=== PATIENT | female | born 1985 | race Two or more races ===

== ENCOUNTER 2024-07-10 19:27 | Inpatient (IN) | payer OTHER, SELFPAY ==
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
[2024-07-10 21:05] VITALS: BP 114/76; PULSE 119; RESP 18; TEMP 37.1; O2SAT 95
[2024-07-10 21:09] VITALS: PULSE 115
--- NOTE | 2024-07-10 21:09 | EKG_ITS ---
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
[2024-07-10] MEDS: SODIUM CHLORIDE 0.9% 1000 ML 1,000 ML 999 ML IV (21:27)
[2024-07-10 21:49] LABS: Basophils % (Auto) 1 % (0-2.5); Eosinophils % (Auto) 0 % (0-10); Hematocrit 43.1 % (36.0-46.0); Hemoglobin 14.5 g/dL (12.0-16.0); Immature Granulocytes % (Auto) 1 % (0-0); Immature Granulocytes Auto 0.04 Thou/mm3 (0.00-0.00); Lymphocytes # (Auto) 0.5 Thou/mm3 (1.0-4.8); Lymphocytes % (Auto) 6 % (10-50); Mean Corpuscular HGB Conc 33.6 g/dl (31.0-37.0); Mean Corpuscular Hemoglobin 29.5 pg (25.0-35.0); Mean Corpuscular Volume 88 fL (80-100); Monocytes # (Auto) 0.4 Thou/mm3 (0.0-0.8); Monocytes % (Auto) 5 % (0-12); Neutrophils # (Auto) 7.1 Thou/mm3 (1.8-7.7); Neutrophils % (Auto) 87 % (37-80); Nucleated Red Blood Cell % 0 /100 WBC (0); Platelet Count 435 Thou/mm3 (140-440); RDW Standard Deviation 41.8 fL (36.4-46.3); Red Blood Count 4.91 Miln/mm3 (4.00-5.20); White Blood Count 8.1 Thou/mm3 (3.6-11.0)
[2024-07-10 21:52] LABS: Lactate (Lactic Acid) 1.8 mMol/L (0.4-2.0)
[2024-07-10 22:08] LABS: INR 1.1 (0.9-1.3); Partial Thromboplastin Time 28.1 Seconds (22.0-36.0); Prothrombin Time 12.2 Seconds (9.0-12.2)
[2024-07-10 22:21] LABS: Alanine Aminotransferase 10 U/L (10-49); Albumin, Serum 4.5 gm/dL (3.5-5.0); Albumin/Globulin Ratio 1.6 (1.2-2.2); Alcohol, Blood Medical < 3.0 mg/dL (0-10.0); Alkaline Phosphatase 92 U/L (46-116); Anion Gap 9 (7-16); Aspartate Amino Transferase 16 U/L (0-34); BUN/Creatinine Ratio 31 Ratio (12-20); Bilirubin,Total 0.8 mg/dL (0.3-1.2); Blood Urea Nitrogen 25 mg/dL (9-23); Calcium 10.1 mg/dL (8.3-10.6); Calcium (Corrected) 10.1 mg/dL (8.5-10.1); Carbon Dioxide 27.6 mMol/L (20.0-31.0); Chloride 95 mMol/L (98-107); Creatinine (Component) 0.8 mg/dL (0.6-1.3); Globulin 2.9 gm/dL (2.3-3.5); Glucose 143 mg/dL (74-106); Lipase 22 U/L (12-53); Osmolality,Calculated 270 (275-295); Potassium 4.1 mMol/L (3.4-5.1); Sodium 132 mMol/L (136-145); Total Protein 7.4 gm/dL (5.7-8.2); Troponin I < 0.020 ng/mL (0.0-0.045); eGFR > 60 See Note
[2024-07-10 22:51] LABS: Collection Type, Urine Catheter
[2024-07-10 22:55] LABS: Bilirubin,Urine 1+ (Negative); Blood,Urine Negative (Negative); Clarity,Urine Clear (Clear/Hazy); Color,Urine Yellow (Lt Yel-Yel); Glucose, Urine Trace (Negative); Ketones,Urine 3+ (Negative); Leukocyte Esterase,Urine Negative (Negative); Nitrite,Urine Negative (Negative); PH,Urine 6.5 (5.0-7.0); Protein,Urine 1+ (Neg - Trace); RBC,Urine 5 /hpf (0-3); Specific Gravity,Urine 1.049 (1.001-1.035); Squamous Epithelial Cell,Urine 3 /hpf (0-5); WBC,Urine 2 /hpf (0-5)
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
[2024-07-10 23:04] LABS: HCG Qualitative,Urine Negative
[2024-07-10 23:05] LABS: Barbiturate Screen,Urine Negative (Negative); Benzodiazepines Screen,Urine Negative (Negative); Benzoylecgonine Screen, Ur Negative (Negative); Fentanyl Screen,Urine Negative (Negative); Opiate Screen,Urine Negative (Negative)
[2024-07-10 23:06] LABS: Amphetamine/Methamp Scrn,U Positive (Negative); THC Screen,Urine Positive (Negative)
[2024-07-10 23:21] VITALS: BP 105/57; PULSE 120; RESP 20; O2SAT 99
[2024-07-11] VITALS (16 sets, daily range): BP systolic 109–128; BP diastolic 60–79; PULSE 98–118; RESP 12–96; TEMP 36.2–37.2; O2SAT 94–100
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
[2024-07-11] MEDS: SODIUM CHLORIDE 0.9% 1000 ML 1,000 ML 999 ML IV (02:19)
[2024-07-11] MEDS: PIPER/TAZO INJ 4.5 GM in SODIUM CHLORIDE 0.9% (P) 100 ML IV (02:20)
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
[2024-07-11 04:38] LABS: Basophils % (Auto) 0 % (0-2.5); Eosinophils % (Auto) 0 % (0-10); Hematocrit 37.4 % (36.0-46.0); Hemoglobin 12.5 g/dL (12.0-16.0); Immature Granulocytes % (Auto) 1 % (0-0); Immature Granulocytes Auto 0.03 Thou/mm3 (0.00-0.00); Lymphocytes # (Auto) 0.6 Thou/mm3 (1.0-4.8); Lymphocytes % (Auto) 12 % (10-50); Mean Corpuscular HGB Conc 33.4 g/dl (31.0-37.0); Mean Corpuscular Hemoglobin 29.9 pg (25.0-35.0); Mean Corpuscular Volume 90 fL (80-100); Monocytes # (Auto) 0.5 Thou/mm3 (0.0-0.8); Monocytes % (Auto) 10 % (0-12); Neutrophils # (Auto) 4.1 Thou/mm3 (1.8-7.7); Neutrophils % (Auto) 77 % (37-80); Nucleated Red Blood Cell % 0 /100 WBC (0); Platelet Count 355 Thou/mm3 (140-440); RDW Standard Deviation 43.1 fL (36.4-46.3); Red Blood Count 4.18 Miln/mm3 (4.00-5.20); White Blood Count 5.3 Thou/mm3 (3.6-11.0)
[2024-07-11] MEDS: SODIUM CHLORIDE 0.9% 1000 ML 1,000 ML 75 ML IV (04:53)
[2024-07-11 04:57] LABS: Glucose Estimated Average 97 mg/dL (80-131)
[2024-07-11 05:02] LABS: Alanine Aminotransferase 15 U/L (10-49); Albumin, Serum 3.8 gm/dL (3.5-5.0); Albumin/Globulin Ratio 1.5 (1.2-2.2); Alkaline Phosphatase 76 U/L (46-116); Anion Gap 7 (7-16); Aspartate Amino Transferase 14 U/L (0-34); BUN/Creatinine Ratio 30 Ratio (12-20); Bilirubin,Total 0.8 mg/dL (0.3-1.2); Blood Urea Nitrogen 18 mg/dL (9-23); Calcium 8.6 mg/dL (8.3-10.6); Calcium (Corrected) 8.8 mg/dL (8.5-10.1); Carbon Dioxide 24.8 mMol/L (20.0-31.0); Cardiac Risk Estimate 2.2 RATIO (3.7-5.6); Chloride 101 mMol/L (98-107); Cholesterol 93 mg/dL (132-200); Creatinine (Component) 0.6 mg/dL (0.6-1.3); Globulin 2.5 gm/dL (2.3-3.5); Glucose 126 mg/dL (74-106); HDL Cholesterol 42 mg/dL (40-60); LDL Cholesterol,Calculated 37 mg/dL (0-130); Magnesium 1.7 mg/dL (1.6-2.6); Osmolality,Calculated 270 (275-295); Phosphorous 2.3 mg/dL (2.4-5.1); Potassium 3.8 mMol/L (3.4-5.1); Sodium 133 mMol/L (136-145); Thyroid Stimulating Hormone 0.06 uIU/mL (0.55-4.78); Total Protein 6.3 gm/dL (5.7-8.2); Triglycerides 68 mg/dL (30-150); eGFR > 60 See Note
[2024-07-11] MEDS: ONDANSETRON INJ 2 MG/ML INJ 2 ML 4 MG IV (06:15)
[2024-07-11] MEDS: MORPHINE SULF INJ 10 MG/ML VIAL IVP (06:15)
[2024-07-11] MEDS: INSULIN LISPRO (AdmeLOG) 1 UNIT/0.01 ML UNIT SC (06:25)
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
[2024-07-11 08:34] LABS: Free T4 (Free Thyroxine) 1.19 ng/dL (0.89-1.76)
[2024-07-11] MEDS: PANTOPRAZOLE INJ 40 MG VIAL IVP (08:59)
[2024-07-11] MEDS: SOD PHOS ADDITIVE 15 MMOL in SODIUM CHLORIDE 0.9% 250 ML 250 ML 62.5 MMOL IV (08:59)
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
--- NOTE | 2024-07-11 12:24 | PC.SS ---
Luz Marina Munoz is a 38-year-old female admitted to [facility] for Gallstone Ileus. SS conducted bedside contact with the patient to complete initial assessment and to discuss discharge planning. Patient confirmed demographic information. Patient identifies her mother Ruth Ann Munoz [phone] as her surrogate decision maker. Patient resides at home with her family. Pt states she is able to complete all ADL?s independently, no need for any source of DME. Pt reports not having a PCP at this time. DC options discussed pt wishes to return home. Family will provide transportation upon DC. No further intervention required at this time, social welfare administrator would be available to address any further concerns.
--- NOTE | 2024-07-11 13:11 | PC.SS ---
Rounding: Plan for SX today
--- NOTE | 2024-07-11 13:30 | PD.SUROPNT ---
Date of Procedure 07/11/24 Pre Op Diagnosis Gallstone ileus Small bowel obstruction Post Op Diagnosis Gallstone ileus Small bowel obstruction Procedure Exploratory laparotomy, enterotomy with removal of large gallstone causing small bowel obstruction Findings A very large gallstone causing complete bowel obstruction and proximal ileum Procedure Description Patient brought into the operating room in supine position. After administration of general tracheal anesthesia, patient's abdomen prepped and draped in standard surgical fashion. A laparotomy incision was made from mid epigastrium to the left and around the umbilicus and just to below the umbilicus. Dissection was deepened into soft tissue and anterior abdominal fascia was divided. Upon entering the abdominal cavity, the small bowel was noted to be very dilated. Small bowel was eviscerated. Patient was noted to have a large gallstone with proximal ileum causing complete bowel obstruction. An enterotomy was made proximal to the area of obstruction and the gallstone was milked retrograde and was removed from the enterotomy site. The proximal small bowel was decompressed with suction. Enterotomy site was closed in transverse fashion with running 2-0 Vicryl and reinforced with 3-0 silk sutures in Lembert fashion. The enterotomy closure site was widely patent. Abdomen and pelvis copiously and thoroughly washed and irrigated, all the fluids were suctioned and the suction fluid returned clear. Hemostasis was adequate and satisfactory. Anterior abdominal fascia was closed with running 0 PDS as well as interrupted sutures with #1 Vicryl. The wound was washed and incision was closed with ed. Patient tolerated the procedure well. She was extubated, breathing spontaneously and without difficulty and was transferred to postanesthesia care in stable condition. Instruments, needles and sponge counts were reported to be correct x 2. Anesthesia GETA Pathology / specimen Other (Large gallstone) Estimated Blood Loss 10 Condition Stable Disposition PACU Surgeon Helena Shipman MD Surgical Staff Operation Date: 07/11/24 13:15 Case Staff Anesthesiologist: Neil Viveros RN First Assistant: Delaney Gannon
--- NOTE | 2024-07-11 13:37 | SUR.PHASEI ---
Pt. arrived to recovery via bed, pt. opens eyes and responds to verbal commands, VSS, no c/o pain or nausea at this time, lung sounds clear, equal expansion richard., dressing to medial abd.- ed, fluffs, abd. pad and metaport tape intact, no active bleeding or redness noted, NGT to right nare measuring at 60, weber catheter in place, report received from Vipul SAAVEDRA and Dr. Viveros.
--- NOTE | 2024-07-11 14:15 | SUR.PHASEI ---
Called and gave report on pt. s/p surgery to Brandon SAAVEDRA on telemetry unit.
[2024-07-11] MEDS: MORPHINE SULF 1 MG/ML PCA SYRINGE 30 ML PCA (14:16)
--- NOTE | 2024-07-11 14:34 | SUR.PHASEI ---
Pt. transferred to room 274 via bed, VSS, no c/o pain or nausea at this time, dressing to medial abdomen CDI, NGT to right nare in place, weber catheter in place and draining, IV flushed and patent, pt. 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
[2024-07-11] MEDS: ACETAMINOPHEN IVPB 1,000 MG/100 ML VIAL 250 MG IV (17:39)
[2024-07-11] MEDS: CEFOXITIN 2 GM in Sterile Water 10 ML IVP (17:40)
[2024-07-12] VITALS (14 sets, daily range): BP systolic 104–116; BP diastolic 63–69; PULSE 86–110; RESP 13–97; TEMP 36.1–36.7; O2SAT 96–98; BMI 28.1
[2024-07-12] MEDS: CEFOXITIN 2 GM in Sterile Water 10 ML IVP ×5 (00:09→23:31)
[2024-07-12 06:10] LABS: Basophils # (Auto) 0.1 Thou/mm3 (0.0-0.2); Basophils % (Auto) 1 % (0-2.5); Eosinophils % (Auto) 0 % (0-10); Hematocrit 32.8 % (36.0-46.0); Hemoglobin 10.9 g/dL (12.0-16.0); Immature Granulocytes % (Auto) 1 % (0-0); Immature Granulocytes Auto 0.06 Thou/mm3 (0.00-0.00); Lymphocytes # (Auto) 0.9 Thou/mm3 (1.0-4.8); Lymphocytes % (Auto) 10 % (10-50); Mean Corpuscular HGB Conc 33.2 g/dl (31.0-37.0); Mean Corpuscular Volume 90 fL (80-100); Monocytes # (Auto) 0.6 Thou/mm3 (0.0-0.8); Monocytes % (Auto) 7 % (0-12); Neutrophils # (Auto) 7.6 Thou/mm3 (1.8-7.7); Neutrophils % (Auto) 82 % (37-80); Nucleated Red Blood Cell % 0 /100 WBC (0); Platelet Count 453 Thou/mm3 (140-440); RDW Standard Deviation 44.4 fL (36.4-46.3); Red Blood Count 3.63 Miln/mm3 (4.00-5.20); White Blood Count 9.3 Thou/mm3 (3.6-11.0)
[2024-07-12 06:22] LABS: Alanine Aminotransferase 13 U/L (10-49); Albumin, Serum 3.3 gm/dL (3.5-5.0); Albumin/Globulin Ratio 1.4 (1.2-2.2); Alkaline Phosphatase 74 U/L (46-116); Anion Gap 10 (7-16); Aspartate Amino Transferase 13 U/L (0-34); BUN/Creatinine Ratio 23 Ratio (12-20); Bilirubin,Total 0.3 mg/dL (0.3-1.2); Blood Urea Nitrogen 16 mg/dL (9-23); Calcium 9.3 mg/dL (8.3-10.6); Calcium (Corrected) 9.9 mg/dL (8.5-10.1); Chloride 105 mMol/L (98-107); Creatinine (Component) 0.7 mg/dL (0.6-1.3); Globulin 2.4 gm/dL (2.3-3.5); Glucose 97 mg/dL (74-106); Osmolality,Calculated 278 (275-295); Phosphorous 3.4 mg/dL (2.4-5.1); Potassium 3.8 mMol/L (3.4-5.1); Sodium 139 mMol/L (136-145); Total Protein 5.7 gm/dL (5.7-8.2); eGFR > 60 See Note
[2024-07-12 06:42] LABS: INR 1.2 (0.9-1.3); Prothrombin Time 12.6 Seconds (9.0-12.2)
[2024-07-12] MEDS: bisacodyL 10 MG SUPP PR (08:17)
[2024-07-12] MEDS: PANTOPRAZOLE INJ 40 MG VIAL IVP (08:17)
--- NOTE | 2024-07-12 09:13 | PC.SS ---
rounding note: Patient had surgery yesterday. D/c home once stable
[2024-07-12] MEDS: ACETAMINOPHEN IVPB 1,000 MG/100 ML VIAL 250 MG IV (11:38)
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
--- NOTE | 2024-07-12 12:08 | PD.SURPROG ---
Documentation for date of: 07/12/24 Subjective Subjective Narrative: Patient is seen and examined. Pain is controlled with USED CAR SALESPERSON Exam Vital Signs Temp Pulse Resp BP Pulse Ox O2 Del Method O2 Flow Rate 97.7 F 104 H 19 107/69 98 Room Air 8 07/12/24 08:00 07/12/24 08:36 07/12/24 10:00 07/12/24 08:00 07/12/24 08:00 07/12/24 08:00 07/12/24 00:00 Constitutional Constitutional: no acute distress Routine Abdominal Exam Comments: Abdomen is soft and mildly distended. She has hypoactive bowel sounds. Incision with dressings clean, dry and intact Assessment & Plan Assessment Additional comments: Postop day #1 status post exploratory laparotomy, with enterotomy and removal of gallstone from proximal ileum Plan Clamped NG tube. May have ice chips. Increase ambulation and use incentive spirometer. DC Silveira catheter. Continue IV antibiotics Procedures Procedures Exploratory laparotomy, enterotomy with removal of large gallstone causing small bowel obstruction
[2024-07-12] MEDS: MORPHINE SULF 1 MG/ML PCA SYRINGE 30 ML PCA (13:46)
[2024-07-13] VITALS (14 sets, daily range): BP systolic 104–121; BP diastolic 66–76; PULSE 76–95; RESP 13–20; TEMP 36.2–36.6; O2SAT 95–100; BMI 27.3
[2024-07-13 05:38] LABS: Basophils % (Auto) 0 % (0-2.5); Eosinophils # (Auto) 0.2 Thou/mm3 (0.0-0.5); Eosinophils % (Auto) 2 % (0-10); Hematocrit 29.1 % (36.0-46.0); Hemoglobin 9.1 g/dL (12.0-16.0); Immature Granulocytes % (Auto) 1 % (0-0); Immature Granulocytes Auto 0.06 Thou/mm3 (0.00-0.00); Lymphocytes # (Auto) 1.8 Thou/mm3 (1.0-4.8); Lymphocytes % (Auto) 24 % (10-50); Mean Corpuscular HGB Conc 31.3 g/dl (31.0-37.0); Mean Corpuscular Hemoglobin 28.8 pg (25.0-35.0); Mean Corpuscular Volume 92 fL (80-100); Monocytes # (Auto) 0.6 Thou/mm3 (0.0-0.8); Monocytes % (Auto) 8 % (0-12); Neutrophils # (Auto) 4.8 Thou/mm3 (1.8-7.7); Neutrophils % (Auto) 65 % (37-80); Nucleated Red Blood Cell % 0 /100 WBC (0); Platelet Count 484 Thou/mm3 (140-440); RDW Standard Deviation 46.8 fL (36.4-46.3); Red Blood Count 3.16 Miln/mm3 (4.00-5.20); White Blood Count 7.5 Thou/mm3 (3.6-11.0)
[2024-07-13] MEDS: CEFOXITIN 2 GM in Sterile Water 10 ML IVP ×4 (05:40→23:21)
[2024-07-13 06:38] LABS: Alanine Aminotransferase 11 U/L (10-49); Albumin, Serum 3.4 gm/dL (3.5-5.0); Albumin/Globulin Ratio 1.5 (1.2-2.2); Alkaline Phosphatase 69 U/L (46-116); Anion Gap 9 (7-16); Aspartate Amino Transferase 10 U/L (0-34); BUN/Creatinine Ratio 32 Ratio (12-20); Bilirubin,Total 0.3 mg/dL (0.3-1.2); Blood Urea Nitrogen 19 mg/dL (9-23); Calcium 8.8 mg/dL (8.3-10.6); Calcium (Corrected) 9.3 mg/dL (8.5-10.1); Carbon Dioxide 26.5 mMol/L (20.0-31.0); Chloride 102 mMol/L (98-107); Creatinine (Component) 0.6 mg/dL (0.6-1.3); Estimated Creatinine Clearance 107.3 mL/min (>60); Globulin 2.3 gm/dL (2.3-3.5); Glucose 76 mg/dL (74-106); Magnesium 1.8 mg/dL (1.6-2.6); Osmolality,Calculated 275 (275-295); Phosphorous 2.6 mg/dL (2.4-5.1); Potassium 3.4 mMol/L (3.4-5.1); Sodium 137 mMol/L (136-145); Total Protein 5.7 gm/dL (5.7-8.2); eGFR > 60 See Note
[2024-07-13] MEDS: PANTOPRAZOLE INJ 40 MG VIAL IVP (08:35)
[2024-07-13 09:52] LABS: Hematocrit 30.5 % (36.0-46.0); Hemoglobin 9.7 g/dL (12.0-16.0)
[2024-07-13] MEDS: bisacodyL 10 MG SUPP PR (11:11)
--- NOTE | 2024-07-13 11:31 | PD.SURPROG ---
Documentation for date of: 07/13/24 Subjective Subjective Narrative: Patient is seen and examined. She is resting comfortably. She denies nausea or vomiting. She is passing flatus but no bowel movement yet Exam Vital Signs Temp Pulse Resp BP Pulse Ox O2 Del Method O2 Flow Rate 97.1 F 85 13 105/66 99 Nasal Cannula 1 07/13/24 08:00 07/13/24 08:00 07/13/24 09:59 07/13/24 08:00 07/13/24 08:00 07/13/24 08:00 07/13/24 08:00 Constitutional Constitutional: no acute distress Routine Abdominal Exam Comments: Abdomen is soft and less distended. Bowel sounds are present. Incision with dressings clean, dry and intact Assessment & Plan Assessment Additional comments: Postop day #2 status post exploratory laparotomy with enterotomy and removal of large gallstone causing small bowel obstruction Plan DC NG tube and start patient on clear liquids. Procedures Procedures Exploratory laparotomy, enterotomy with removal of large gallstone causing small bowel obstruction
[2024-07-13] MEDS: bisacodyL 5 MG TABEC 10 MG PO (11:47)
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
[2024-07-13] MEDS: MORPHINE SULF 1 MG/ML PCA SYRINGE 30 ML PCA (14:02)
--- NOTE | 2024-07-13 18:06 | PC.NURSE ---
Patient ambulated to the bathroom with assist, after urinating stated blood in toilet, noted about 4-6 drops of blood in the toilet. Patient stated she is not having menstrual cycles. Dr. Chambers notified.
[2024-07-13] MEDS: LACTULOSE SYRUP 20 GM/30 ML UDC PO (18:13)
[2024-07-13 19:25] LABS: Hematocrit 30.2 % (36.0-46.0); Hemoglobin 9.9 g/dL (12.0-16.0)
[2024-07-14] VITALS (15 sets, daily range): BP systolic 117–128; BP diastolic 78–91; PULSE 72–93; RESP 13–20; TEMP 36–36.6; O2SAT 95–100; BMI 27.5
[2024-07-14 05:02] LABS: Basophils % (Auto) 0 % (0-2.5); Eosinophils # (Auto) 0.3 Thou/mm3 (0.0-0.5); Eosinophils % (Auto) 4 % (0-10); Hematocrit 30.9 % (36.0-46.0); Immature Granulocytes % (Auto) 1 % (0-0); Immature Granulocytes Auto 0.08 Thou/mm3 (0.00-0.00); Lymphocytes # (Auto) 1.8 Thou/mm3 (1.0-4.8); Lymphocytes % (Auto) 24 % (10-50); Mean Corpuscular HGB Conc 32.4 g/dl (31.0-37.0); Mean Corpuscular Hemoglobin 29.6 pg (25.0-35.0); Mean Corpuscular Volume 91 fL (80-100); Monocytes # (Auto) 0.7 Thou/mm3 (0.0-0.8); Monocytes % (Auto) 9 % (0-12); Neutrophils # (Auto) 4.5 Thou/mm3 (1.8-7.7); Neutrophils % (Auto) 62 % (37-80); Nucleated Red Blood Cell % 0 /100 WBC (0); Platelet Count 388 Thou/mm3 (140-440); RDW Standard Deviation 45.7 fL (36.4-46.3); Red Blood Count 3.38 Miln/mm3 (4.00-5.20); White Blood Count 7.3 Thou/mm3 (3.6-11.0)
[2024-07-14] MEDS: CEFOXITIN 2 GM in Sterile Water 10 ML IVP ×4 (05:23→23:35)
[2024-07-14 05:51] LABS: Alanine Aminotransferase 11 U/L (10-49); Albumin, Serum 3.6 gm/dL (3.5-5.0); Albumin/Globulin Ratio 1.4 (1.2-2.2); Alkaline Phosphatase 80 U/L (46-116); Anion Gap 8 (7-16); Aspartate Amino Transferase < 10 U/L (0-34); BUN/Creatinine Ratio 25 Ratio (12-20); Bilirubin,Total 0.3 mg/dL (0.3-1.2); Blood Urea Nitrogen 15 mg/dL (9-23); Calcium 9.1 mg/dL (8.3-10.6); Calcium (Corrected) 9.4 mg/dL (8.5-10.1); Carbon Dioxide 28.6 mMol/L (20.0-31.0); Chloride 97 mMol/L (98-107); Creatinine (Component) 0.6 mg/dL (0.6-1.3); Estimated Creatinine Clearance 105.9 mL/min (>60); Globulin 2.6 gm/dL (2.3-3.5); Glucose 101 mg/dL (74-106); Magnesium 1.6 mg/dL (1.6-2.6); Osmolality,Calculated 269 (275-295); Phosphorous 4.2 mg/dL (2.4-5.1); Potassium 3.5 mMol/L (3.4-5.1); Sodium 134 mMol/L (136-145); Total Protein 6.2 gm/dL (5.7-8.2); eGFR > 60 See Note
[2024-07-14] MEDS: Magnesium Sulfate 2 GM Ivpb 2 GM/50 ML BAG IV (08:30)
[2024-07-14] MEDS: PANTOPRAZOLE INJ 40 MG VIAL IVP (08:30)
[2024-07-14] MEDS: ONDANSETRON INJ 2 MG/ML INJ 2 ML 4 MG IV ×2 (08:44→23:01)
--- NOTE | 2024-07-14 08:52 | PC.NURSE ---
Patient tried to drink liquid potassium, felt like throwing up after taking a sip, called Dr. Palm, switching to iv potassium.
[2024-07-14] MEDS: POTASSIUM CHL 10 mEq IVPB 10 MEQ/100 ML BAG 100 MEQ IV ×4 (08:59→13:15)
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
[2024-07-14] MEDS: MORPHINE SULF 1 MG/ML PCA SYRINGE 30 ML PCA (14:33)
--- NOTE | 2024-07-14 14:59 | PC.SS ---
Rounding Note: patient remains in the hospital for IV antibiotics and needs a bowel movement.
--- NOTE | 2024-07-14 19:33 | PC.NURSE ---
Notified Dr. Palm about patient not having BM still, no new orders continue to promote ambulation.
--- NOTE | 2024-07-14 20:24 | PD.SURPROG ---
Documentation for date of: 07/14/24 Subjective Subjective Narrative: Patient is seen and examined. Pain is improving. She is tolerating clear liquids Exam Vital Signs Temp Pulse Resp BP Pulse Ox O2 Del Method O2 Flow Rate 96.8 F 80 19 128/80 97 Nasal Cannula 2 07/14/24 20:00 07/14/24 20:00 07/14/24 20:00 07/14/24 20:00 07/14/24 20:00 07/14/24 20:00 07/14/24 20:00 Constitutional Constitutional: no acute distress Routine Abdominal Exam Abdominal: Present soft, normoactive bowel sounds, tenderness (Genet-incisional tenderness. Incision with dressings clean, dry and intact) and distended (Mildly distended) Assessment & Plan Assessment Additional comments: Postop day #3 status post exploratory laparotomy with enterotomy and removal of large gallstone causing small bowel obstruction Plan Advance to full liquids Procedures Procedures Exploratory laparotomy, enterotomy with removal of large gallstone causing small bowel obstruction
[2024-07-15] VITALS (11 sets, daily range): BP systolic 104–130; BP diastolic 66–87; PULSE 74–102; RESP 14–20; TEMP 36.1–36.6; O2SAT 94–97; BMI 28.0
[2024-07-15] MEDS: CEFOXITIN 2 GM in Sterile Water 10 ML IVP ×4 (05:33→23:35)
[2024-07-15 06:05] LABS: Basophils % (Auto) 1 % (0-2.5); Eosinophils # (Auto) 0.1 Thou/mm3 (0.0-0.5); Eosinophils % (Auto) 3 % (0-10); Hematocrit 32.4 % (36.0-46.0); Hemoglobin 10.5 g/dL (12.0-16.0); Immature Granulocytes % (Auto) 1 % (0-0); Immature Granulocytes Auto 0.05 Thou/mm3 (0.00-0.00); Lymphocytes # (Auto) 1.1 Thou/mm3 (1.0-4.8); Lymphocytes % (Auto) 29 % (10-50); Mean Corpuscular HGB Conc 32.4 g/dl (31.0-37.0); Mean Corpuscular Hemoglobin 29.6 pg (25.0-35.0); Mean Corpuscular Volume 91 fL (80-100); Monocytes # (Auto) 0.5 Thou/mm3 (0.0-0.8); Monocytes % (Auto) 12 % (0-12); Neutrophils # (Auto) 2.1 Thou/mm3 (1.8-7.7); Neutrophils % (Auto) 55 % (37-80); Nucleated Red Blood Cell % 0 /100 WBC (0); Platelet Count 412 Thou/mm3 (140-440); RDW Standard Deviation 45.5 fL (36.4-46.3); Red Blood Count 3.55 Miln/mm3 (4.00-5.20); White Blood Count 3.9 Thou/mm3 (3.6-11.0)
[2024-07-15 07:10] LABS: Alanine Aminotransferase 18 U/L (10-49); Albumin, Serum 3.4 gm/dL (3.5-5.0); Albumin/Globulin Ratio 1.3 (1.2-2.2); Alkaline Phosphatase 98 U/L (46-116); Anion Gap 7 (7-16); Aspartate Amino Transferase 20 U/L (0-34); BUN/Creatinine Ratio 20 Ratio (12-20); Bilirubin,Total 0.4 mg/dL (0.3-1.2); Blood Urea Nitrogen 12 mg/dL (9-23); Calcium 10.1 mg/dL (8.3-10.6); Calcium (Corrected) 10.6 mg/dL (8.5-10.1); Chloride 99 mMol/L (98-107); Creatinine (Component) 0.6 mg/dL (0.6-1.3); Estimated Creatinine Clearance 104.1 mL/min (>60); Globulin 2.6 gm/dL (2.3-3.5); Glucose 107 mg/dL (74-106); Magnesium 1.9 mg/dL (1.6-2.6); Osmolality,Calculated 267 (275-295); Potassium 4.2 mMol/L (3.4-5.1); Sodium 134 mMol/L (136-145); eGFR > 60 See Note
[2024-07-15 07:23] LABS: Phosphorous 3.7 mg/dL (2.4-5.1)
[2024-07-15] MEDS: PANTOPRAZOLE INJ 40 MG VIAL IVP (08:21)
--- NOTE | 2024-07-15 10:42 | ESPR_ITS ---
Documentation for date of: 07/15/24 Subjective Subjective Narrative: Patient is seen and examined. She is tolerating full liquids without nausea or vomiting and passing flatus. She has not had bowel movement yet Exam Vital Signs Temp Pulse Resp BP Pulse Ox O2 Del Method O2 Flow Rate 97.5 F 83 20 119/77 94 L Nasal Cannula 1 07/15/24 08:00 07/15/24 09:34 07/15/24 09:34 07/15/24 08:00 07/15/24 09:34 07/15/24 08:00 07/15/24 09:34 Constitutional Constitutional: no acute distress Routine Abdominal Exam Abdominal: Present soft, normoactive bowel sounds, tenderness (Mild lenny- incisional tenderness. Incision is clean, dry and intact) and distended (Mildly distended) Assessment & Plan Assessment Additional comments: Postop day #4 status post exploratory laparotomy with enterotomy and removal of large gallstone causing small bowel obstruction Plan Advance to soft diet. 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 Awaiting for return of GI function Procedures Procedures Exploratory laparotomy, enterotomy with removal of large gallstone causing small bowel obstruction
--- NOTE | 2024-07-15 11:38 | PC.SS ---
rounding note: Patient ready for discharge. Patient has not had a b.m. yet. No documentation indicating
[2024-07-15] MEDS: bisacodyL 5 MG TABEC 10 MG PO (12:12)
[2024-07-15] MEDS: HYDROcodone/APAP 5/325 TABLET 1 TAB PO ×2 (12:33→18:33)
[2024-07-15] MEDS: bisacodyL 10 MG SUPP PR (12:33)
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
[2024-07-16] VITALS: BP 105/74; PULSE 94; PULSE 95; RESP 16; TEMP 35.9; O2SAT 95
--- NOTE | 2024-07-16 00:09 | PC.NURSE ---
Pt downgrading to med/surg tele, gave report to Elvin pt alert and oriented.
[2024-07-16] MEDS: HYDROcodone/APAP 5/325 TABLET 1 TAB PO ×2 (00:38→06:36)
[2024-07-16 04:00] VITALS: BP 114/75; PULSE 96; RESP 16; TEMP 36.2; O2SAT 95
[2024-07-16 05:47] LABS: Basophils % (Auto) 1 % (0-2.5); Eosinophils # (Auto) 0.2 Thou/mm3 (0.0-0.5); Eosinophils % (Auto) 3 % (0-10); Hematocrit 32.4 % (36.0-46.0); Hemoglobin 10.6 g/dL (12.0-16.0); Immature Granulocytes % (Auto) 2 % (0-0); Immature Granulocytes Auto 0.09 Thou/mm3 (0.00-0.00); Lymphocytes # (Auto) 1.4 Thou/mm3 (1.0-4.8); Lymphocytes % (Auto) 26 % (10-50); Mean Corpuscular HGB Conc 32.7 g/dl (31.0-37.0); Mean Corpuscular Hemoglobin 29.3 pg (25.0-35.0); Mean Corpuscular Volume 90 fL (80-100); Monocytes # (Auto) 0.7 Thou/mm3 (0.0-0.8); Monocytes % (Auto) 12 % (0-12); Neutrophils # (Auto) 3.2 Thou/mm3 (1.8-7.7); Neutrophils % (Auto) 57 % (37-80); Nucleated Red Blood Cell % 0 /100 WBC (0); Platelet Count 432 Thou/mm3 (140-440); Red Blood Count 3.62 Miln/mm3 (4.00-5.20); White Blood Count 5.5 Thou/mm3 (3.6-11.0)
[2024-07-16] MEDS: CEFOXITIN 2 GM in Sterile Water 10 ML IVP (05:49)
[2024-07-16 06:00] VITALS: BMI 27.1
[2024-07-16 06:10] LABS: Alanine Aminotransferase 21 U/L (10-49); Albumin, Serum 3.7 gm/dL (3.5-5.0); Albumin/Globulin Ratio 1.4 (1.2-2.2); Alkaline Phosphatase 101 U/L (46-116); Anion Gap 5 (7-16); Aspartate Amino Transferase 16 U/L (0-34); BUN/Creatinine Ratio 15 Ratio (12-20); Bilirubin,Total 0.3 mg/dL (0.3-1.2); Blood Urea Nitrogen 9 mg/dL (9-23); Calcium 8.9 mg/dL (8.3-10.6); Calcium (Corrected) 9.1 mg/dL (8.5-10.1); Carbon Dioxide 30.1 mMol/L (20.0-31.0); Chloride 98 mMol/L (98-107); Creatinine (Component) 0.6 mg/dL (0.6-1.3); Estimated Creatinine Clearance 104.1 mL/min (>60); Globulin 2.6 gm/dL (2.3-3.5); Glucose 94 mg/dL (74-106); Osmolality,Calculated 265 (275-295); Potassium 3.8 mMol/L (3.4-5.1); Sodium 133 mMol/L (136-145); Total Protein 6.3 gm/dL (5.7-8.2); eGFR > 60 See Note
[2024-07-16 07:38] VITALS: PULSE 76; RESP 18; O2SAT 96
[2024-07-16 07:48] VITALS: BP 119/75; PULSE 95; RESP 18; TEMP 36.2; O2SAT 96
[2024-07-16] MEDS: PANTOPRAZOLE INJ 40 MG VIAL IVP (08:04)
[2024-07-16 12:00] VITALS: BP 122/75; PULSE 94; RESP 18; TEMP 36.2; O2SAT 96
--- NOTE | 2024-07-16 13:27 | PD.SURPROG ---
Documentation for date of: 07/16/24 Subjective Subjective Narrative: Patient is seen and examined. She is feeling much better. She is tolerating diet without nausea or vomiting and having multiple bowel movements Exam Vital Signs Temp Pulse Resp BP Pulse Ox O2 Del Method O2 Flow Rate 97.1 F 94 18 122/75 96 Room Air 1 07/16/24 12:00 07/16/24 12:00 07/16/24 12:07/16/24 12:07/16/24 12:07/16/24 12:07/15/24 21:30 Constitutional Constitutional: no acute distress Routine Abdominal Exam Abdominal: Present soft and normoactive bowel sounds; Absent tenderness or distended Assessment & Plan Assessment Additional comments: Status post exploratory laparotomy with enterotomy and removal of large gallstone Plan May discharge home. Procedures Procedures Exploratory laparotomy, enterotomy with removal of large gallstone causing small bowel obstruction
--- NOTE | 2024-07-16 16:33 | ESDS_ITS ---
Planned Discharge Date 07/16/24 DS: Providers Provider Date of admission: 07/11/24 04:02 Primary care physician: Physician No Primary/Family Admitting Provider: Diego Johnson MD Attending Provider on Admission: New Lizama DO Consults: 07/11/24 03:53 Consult to General Surgery Stat Comment: Consulting Provider: Helena Shipman Attending Provider on DC: Dr. New Lizama DO Discharging Provider: Dr. New Lizama DO DS: Diagnosis Problem List Completed Was Problem List Reviewed/Reconciled?: Yes Hospital Course Hospital Course Hospital course: This is a 38-year-old female with PMHx of questionable stroke at the age of 35, without residual deficit who was admitted for acute abdominal pain secondary to cholecystoduodenal fistula and gallstone ileus. X-ray showed air distended small bowel loops in upper transverse colon. 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 She underwent EX-LAP for large gallstone causing small bowel obstruction with general surgery. Continued on ANALGESIC, abdominal pain have improved substantially. At the time of discharge. She has been tolerating oral intake without nausea or vomiting or constipation, and having regular bowel movements. Patient stable at the time of discharge and will discharge to home. He will follow-up with general surgery within 1-2 weeks of discharge. PATIENT INSTRUCTIONS: Follow-up with PCP within 1 week of discharge. Follow-up with general surgery within 1 week of discharge. Repeat thyroid panel within 4-6 weeks. Return to Emergency Room if symptoms persist, worsen, or new symptoms develop. Continue taking medications as prescribed below: ? COLACE BID ? NORCO 5/325 as needed up to 3 times for 5 days ? Doxycycline 100mg BID for 3 days ADMISSION DIAGNOSES: Cholecystoduodenal fistula Gallstone ileus Small bowel obstruction POD 5 EX-LAP Tachycardia (resolved) Methamphetamine use disorder Hyperglycemia (resolved) Subclinical hyperthyroidism Electrolyte abnormalities Patient case was discussed with attending, Dr. New Lizama DO and senior residents Dr. Lynn and Dr. Rueda. Sherine Palm DO PGYI Senior Resident Attestation: I discussed with and supervised the hospitality internship physician involved in the care of this patient. I personally saw and examined the patient and discussed the discharge plan with the entire medicine team, including my attending. Antony Rueda MD PGY2 Internal Medicine Time Spent with Patient Time attestation: Total time spent providing and/or coordinating discharge services: Greater than 35 minutes. Exam Vital Signs Temp Pulse Resp BP Pulse Ox O2 Del Method O2 Flow Rate 97.1 F 94 18 122/75 96 Room Air 1 07/16/24 12:00 07/16/24 12:00 07/16/24 12:07/16/24 12:07/16/24 12:07/16/24 12:07/15/24 21:30 Discharge Plan Plan Patient Disposition: HOME (Self Care) Prescriptions/Referrals Prescriptions/Med Rec: New docusate sodium [Colace] 100 mg capsule 100 mg PO BID Qty: 14 0RF hydrocodone-acetaminophen 5-325 mg tablet 1 tab PO Q8H MDD 3 PRN (Reason: pain) Qty: 14 0RF cefuroxime axetil 500 mg tablet 500 mg PO BID 3 Days Qty: 6 0RF Referrals: No Primary/Family,Physician [Primary Care Provider] - Patient/Caregiver Discharge Instructions Other Discharge Activity Instructions:: Follow-up with PCP within 1 week of discharge. Follow-up with general surgery within 1 week of discharge. Repeat thyroid panel within 4-6 weeks. Return to Emergency Room if symptoms persist, worsen, or new symptoms develop. Continue taking medications as prescribed below: ? COLACE BID ? NORCO 5/325 as needed up to 3 times for 5 days - Please take Doxycycline 100mg twice daily for 3 more days Education Materials: Surgery Anesthesia After, Small Bowel Obstruction, Exploratory Laparotomy, Discharge Instructions for ..., Preventing Surgical Site Infections Print Language: Chinese Activity Restrictions/Additional Instructions: May shower. Wear abdominal binder at all times. Avoid lifting, straining, pulling or pushing for 8 weeks. May take over the counter laxatives if no bowel movement in 2 days. Follow up with Dr. Shipman in 2 weeks, call [phone] for an appointment. Stand Alone Forms: [employer] Award Info., Patient Portal Info Letter Discharge Order Discharge Orders: Discharge (Routine); Ordered 07/16/24 Ordered By: Antony Rueda Quality Discharge Quality Measures VTE prophylaxis MD Attestestation MD Attestation I have discussed and was present for the essential components of the discharge history, physical examination, diagnosis, and discharge treatment plan with the resident. I agree with the patient's discharge care as documented by the resident and amended herein by me. Elvin Lizama DO. The patient understood all discharge instructions, all questions were answered satisfactorily. The patient was instructed to return to the Emergency Department is symptoms worsened or persisted. Patient having BMs prior to discharge, pain well-controlled, patient tolerating diet. The patient was stable, tolerating p.o. intake, afebrile and ambulatory at time of discharge. All questions answered. Patient discharged with pain medications and 3 days worth of antibiotics per surgery recommendations. See resident note above for additional details. Although this document has been carefully reviewed, there may still be some phonetic and other typographical errors. These errors are purely grammatical due to imperfections in the software program and should not be construed in any way to compromise the substance of the patient's medical care during this visit.
== END 2024-07-16 13:48 | disposition home or self-care (01) | DRG 223 ==
LOC: SERX 07-11 02:24 → SERHOLD 07-11 04:28 → S2NX 07-11 05:58 → S3SX 07-16 00:32
PROVIDERS: Student in an Organized Health Care Education/Training Program; Surgery; Admitting Provider Internal Medicine; Emergency Provider Emergency Medicine; Visit Provider Student in an Organized Health Care Education/Training Program
PROC: 0DCB0ZZ Extirpation of Matter from Ileum, Open Approach (ICD-10-PCS; CPT 49000; principal; 2024-07-11 13:00)
DX: K56.3 Gallstone ileus (principal); K82.3 Fistula of gallbladder; R73.9 Hyperglycemia, unspecified; E05.80 Other thyrotoxicosis without thyrotoxic crisis or storm; F15.10 Other stimulant abuse, uncomplicated; Z86.73 Personal history of transient ischemic attack (TIA), and cerebral infarction without residual deficits; F17.200 Nicotine dependence, unspecified, uncomplicated
CPT/HCPCS: 36415; 71045; 71260; 74177; 80053; 80061; 80307; 80320; 81001; 81025; 83036; 83605; 83690; 83735; 84100; 84439; 84443; 84484; 85014; 85018; 85025; 85610; 85730; 93005; 96361; 96365; 99291; A4216; A4217; A4649; J0131; J0694; J1100; J1815; J1885; J2250; J2270; J2405; J2470; J2543; J2704; J3010; J3475; J3480; J3490; J7030; J7050; Q9967; A9270; G0480